=== PATIENT | male | born 1955 | race Caucasian/White ===

== ENCOUNTER 2023-12-15 09:29 | Emergency (ER) | payer MEDICARE ==
[2023-12-15 10:00] LABS: #Basophils 0.1 thou/uL (0.0-0.2); #Eosinphils 0.2 thou/uL (0.0-0.7); #Lymphocytes 1.2 thou/uL (1.20-3.40); #Monocytes 0.7 thou/uL (0.11-0.59); #Neutrophils 3.8 thou/uL (1.40-6.50); %Basophils 2.1 % (0.0-1.0); %Eosinophils 2.5 % (0.0-10.0); %Lymphocytes 20.2 % (21.0-51.0); %Neutrophils 64.2 % (42.0-75.0); Hemoglobin 14.3 g/dL (14.0-18.0); Mean Corpuscular Hemoglobin 30.8 pg (27.0-31.0); Mean Corpuscular Volume 90.5 fl (78.0-98.0); Mean Platelet Volume 7.8 fL (7.4-10.4); Platelet Count 275 10x3/uL (130-400); RBC Distribution Width 11.2 % (11.5-14.5); Red Blood Cell (RBC) Count 4.65 mill/uL (4.70-6.10)
[2023-12-15] MEDS ORDERED: Ondansetron PF 4 MG/2 ML Vial ONE (10:00)
[2023-12-15 10:14] LABS: Bilirubin Negative (Negative); Blood, Urine Trace (Negative); Clarity Clear (Clear); Glucose, Urine (Dipstick) Negative (Negative); Ketone, Urine Negative (Negative); Leukocyte Negative (Negative); Nitrite Negative (Negative); Protein, Urine (Dipstick) 100 mg/dL (Neg-Trace); Urobilinogen 0.2 mg/dL (Less than 2); pH, Urine 5.5 (5.0-9.0)
[2023-12-15 10:15] LABS: Specific Gravity, Urine 1.024 (1.002-1.036)
[2023-12-15 10:18] LABS: ALT (SGPT) 26 U/L (8-55); AST (SGOT) 21 U/L (5-34); Albumin 3.9 g/dL (3.4-4.8); Alkaline Phosphatase 48 U/L (40-110); Anion Gap 15 mmol/L (10-20); BUN (Urea Nitrogen) 23 mg/dL (8.4-25.7); Bilirubin, Total 0.5 mg/dL (0.2-1.2); Calc. Creatinine Clearance 0 mL/min (70-130); Calcium 9.1 mg/dL (7.8-10.44); Carbon Dioxide 20 mmol/L (23-31); Chloride 107 mmol/L (98-107); Estimated GFR 72; Globulin 2.6 g/dL (2.4-3.5); Glucose 112 mg/dL (80-115); Potassium 3.8 mmol/L (3.5-5.1); Protein, Total 6.5 g/dL (5.8-8.1); Sodium 138 mmol/L (136-145)
[2023-12-15 10:21] LABS: Troponin I Less than 0.010 ng/mL (< 0.028)
[2023-12-15 10:23] LABS: CAUTI Indications for Culture Dysuria,urgency,freq; WBC/HPF None Seen HPF (0-3)
[2023-12-15 10:24] LABS: Bacteria/HPF 1+ HPF (None Seen); Mucous/LPF 1+ LPF (<2+); Sperm/HPF 1+ HPF (None Seen)
[2023-12-15 10:25] LABS: Urine Culture Reflex No No
[2023-12-15] MEDS ORDERED: Aspirin Chewable 81 MG TAB ONE ×2 (10:38→10:40)
== END 2023-12-15 14:09 | disposition short-term general hospital (02) ==
LOC: BURERS 09:29
DX: R55 Syncope and collapse (principal); S00.511A Abrasion of lip, initial encounter; S00.512A Abrasion of oral cavity, initial encounter; W19.XXXA Unspecified fall, initial encounter
CPT/HCPCS: 70450; 71046; 80053; 81001; 83880; 84484; 85025; 93005; 96374; 99285; J2405

== ENCOUNTER 2024-04-26 09:48 | Emergency (ER) | payer MEDICARE, OTHER ==
[2024-04-26] MEDS ORDERED: Lidocaine 1% PF 5 ML VIAL ONE (10:01)
[2024-04-26] MEDS ORDERED: Bacitracin 1 PK ONE (10:21)
== END 2024-04-26 10:31 | disposition home or self-care (01) ==
LOC: BURERS 09:48
DX: S61.412A Laceration without foreign body of left hand, initial encounter (principal); W26.8XXA Contact with other sharp object(s), not elsewhere classified, initial encounter
CPT/HCPCS: 12001; 99282